=== PATIENT | female | born 1955 | race American Indian/Alaskan Native ===

== ENCOUNTER 2019-03-15 11:42 | Emergency (ER) | payer MEDICARE, MEDICAID, OTHER ==
[2019-03-15 12:04] VITALS: BP 118/70; PULSE 79
[2019-03-15] MEDS ORDERED: Bacitracin Oint 1 GM U/D Packet TOP ONE (12:12)
--- NOTE | 2019-03-15 12:17 | EDM.PDOC ---
ED HPI GENERAL MEDICAL PROBLEM - General Chief Complaint: Wound Recheck Stated Complaint: DRAIN TUBE FELL OUT Time Seen by Provider: 03/15/19 11:55 Source of Information: Reports: Patient, Old Records, RN, RN Notes Reviewed History Limitations: Reports: No Limitations - History of Present Illness INITIAL COMMENTS - FREE TEXT/NARRATIVE: Pt presents to clinic with a HERNANDO drain (tube and bulb) in a plastic bag, stating that it fell out while she was in the shower this morning. 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 Pt states the drain was supposed to stay in until the drainage stopped, but she has been having the bulb about 2/3 full two to three times a day. Pt reports the drainage has been yellow and clear. She denies abdominal pain, fever , chills, or any other acute concerns. Onset: Today Quality: Reports: Other (Denies pain) Improves with: Reports: None Worsens with: Reports: None Associated Symptoms: Reports: No Other Symptoms Right Abdomen Pain Score (Numeric/FACES): 5 - Related Data Allergies Allergy/AdvReac Type Severity Reaction Status Date / Time acetaminophen [From Tylenol] Allergy Liver Verified 03/15/19 11:50 Problems Home Meds: Home Meds Propranolol HCl [Propranolol] 11/01/13 [History] Aspirin [Halfprin] 81 mg PO DAILY 12/04/15 [History] Carboxymethylcellulose Sodium [Lubricant Eye Drops] 1 - 2 drop EYEBOTH QID PRN 12/04/15 [History] Ketorolac Tromethamine [Acular] 1 drop EYERT ASDIRECTED 12/04/15 [History] Lisinopril [Prinivil] 5 mg PO DAILY 12/04/15 [History] Multivitamin with Minerals [Multivitamins with Minerals] 1 tab PO DAILY [History] Naproxen Sodium [Aleve] 1 tab PO BID 12/04/15 [History] Ofloxacin [Floxin 0.3% Otic Soln] 1 drop EYERT ASDIRECTED 12/04/15 [History] Thiamine [Vitamin B-1] 100 mg PO DAILY 12/04/15 [History] sitaGLIPtin Phos/Metformin HCl [Janumet 50-1,000 MG] 1 tab PO BID 12/04/15 [ History] Past Medical History HEENT History: Reports: Cataract, Other (See Below) Cardiovascular History: Reports: Hypertension Gastrointestinal History: Reports: Cirrhosis, Hepatitis, Other (See Below) Other Gastrointestinal History: CHRONIC LIVER DISEASE; HEPATIC ENCEPHALOPATHY Endocrine/Metabolic History: Reports: Diabetes, Type II Hematologic History: Reports: Blood Transfusion(s), Iron Deficiency - Past Surgical History HEENT Surgical History: Reports: None Social & Family History - Living Situation & Occupation Living situation: Reports: with Family Occupation: Unemployed ED ROS GENERAL - Review of Systems Review Of Systems: ROS reveals no pertinent complaints other than HPI. ED EXAM, SKIN/RASH Exam: See Below Exam Limited By: No Limitations General Appearance: Alert, No Apparent Distress, Thin, Other (chronically ill appearing) Nose: Normal Inspection Throat/Mouth: Normal Voice Respiratory/Chest: No Respiratory Distress Cardiovascular: Regular Rate, Rhythm GI/Abdominal: Normal Bowel Sounds, Soft, Non-Tender, Other (RLQ drain site is clean, dry, no drainage, no erythema) Neurological: Alert, Oriented, No Motor/Sensory Deficits Psychiatric: Normal Mood Course - Vital Signs Last Recorded V/S: Last Vital Signs Temp 98.0 F 03/15/19 11:46 Pulse 79 03/15/19 11:46 Resp 18 03/15/19 11:46 BP 118/70 03/15/19 11:46 Pulse Ox - Orders/Labs/Meds Meds: Medications Discontinued Medications Generic Name Dose Route Start Last Admin Trade Name Freq PRN Reason Stop Dose Admin Bacitracin 1 dose 03/15/19 12:12 03/15/19 12:16 Bacitracin Oint 1 Gm TOP 03/15/19 12:13 1 dose ONETIME ONE Administration - Re-Assessments/Exams Free Text/Narrative Re-Assessment/Exam: 03/15/19 12:46 I contacted [facility] and spoke to antionette PARDO from Dr. Esparza's team. She advises that they will call the pt directly to arrange a f/u plan. No further tx needed in the ER setting. Departure - Departure Time of Disposition: 12:32 Disposition: Home, Self-Care 01 Condition: Good Clinical Impression: Disruption of tissue around surgical drain Qualifiers: Encounter type: initial encounter Qualified Code(s): T81.32XA - Disruption of internal operation (surgical) wound, not elsewhere classified, initial encounter - Discharge Information *PRESCRIPTION DRUG MONITORING PROGRAM REVIEWED*: No *COPY OF PRESCRIPTION DRUG MONITORING REPORT IN PATIENT RUI: No Instructions: How to Change Your Dressing, [id number] Forms: ED Department Discharge Additional Instructions: Someone from Dr. Esparza's office at [facility] will call you. If you need to contact Dr. Esparza's team Tuesday - Tuesday between 8:00AM & 5:00PM call: [phone] If you need to contact Dr. Esparza's team after hours call: [phone]
== END 2019-03-15 12:57 | disposition home or self-care (01) ==
LOC: DL.ED 11:42
DX: T81.32XA Disruption of internal operation (surgical) wound, not elsewhere classified, initial encounter (principal); I10 Essential (primary) hypertension; E11.9 Type 2 diabetes mellitus without complications; Z85.89 Personal history of malignant neoplasm of other organs and systems; Z88.6 Allergy status to analgesic agent; Z79.82 Long term (current) use of aspirin; Z79.899 Other long term (current) drug therapy
CPT/HCPCS: 99283